=== PATIENT | male | born 1955 | race Caucasian/White ===

== ENCOUNTER 2021-03-16 05:57 | Day surgery (SDC) | payer MEDICARE ==
[2021-03-12 11:55] VITALS: BMI 38.5
[~2021-03-16 05:57] MED LIST: ACETAMINOPHEN TAB 500 MG TAB PO PRN; HEPARIN SODIUM,PORCINE/PF 5,000 UNIT/0.5 ML SYRINGE SQ PRN; LACTATED RINGERS 1,000 ML IV SCH; LIDOCAINE 1% (10MG/ML) FOR IV START INTRADERMA PRN
[2021-03-16 06:44] LABS: Glucose,Whole Blood 149 mg/dL (75-99)
[2021-03-16] MEDS ORDERED: HYDROmorphone 0.5 MG/0.5 ML SYRINGE IVP PRN (07:00)
[2021-03-16] MEDS ORDERED: ONDANSETRON 4 MG/2 ML VIAL IVP PRN (07:00)
[2021-03-16] MEDS ORDERED: MIDAZOLAM 2 MG/2 ML VIAL IV ONE (07:00)
[2021-03-16 07:19] VITALS: RESP 16
[2021-03-16] MEDS ORDERED: GLYCOPYRROLATE 0.2 MG/ML 2 ML VIAL ONE (07:53)
[2021-03-16] MEDS ORDERED: PHENYLEPHRINE-0.9% NACL SYG 1,000 MCG/10 ML SYRINGE ONE (07:53)
[2021-03-16] MEDS ORDERED: ePHEDrine 50 MG/ML 1 ML VIAL ONE (07:53)
[2021-03-16] MEDS ORDERED: NEOSTIGMINE 1 MG/ML 10 ML VIAL ONE (07:53)
[2021-03-16] MEDS ORDERED: PROPOFOL 10 MG/ML 20 ML VIAL IV ONE (07:53)
[2021-03-16] MEDS ORDERED: SUCCINYLCHOLINE CHLORIDE 100 MG/5 ML SYR IV ONE (07:53)
[2021-03-16] MEDS ORDERED: fentaNYL (PF) 50 MCG/ML 2 ML AMP ONE (07:53)
[2021-03-16] MEDS ORDERED: LIDOCAINE 1% INJ 10MG/ML (20 ML MDV) ONE (07:53)
[2021-03-16] MEDS ORDERED: KETAMINE 10 MG/ML 20 ML VIAL ONE (07:53)
[2021-03-16] MEDS ORDERED: ROPIVACAINE 5 MG/ML 30 ML VIAL ONE (07:53)
[2021-03-16] MEDS ORDERED: ROCURONIUM 10 MG/ML (5 ML VIAL) IV ONE (07:53)
[2021-03-16] MEDS ORDERED: MIDAZOLAM 2 MG/2 ML VIAL ONE (07:53)
[2021-03-16] MEDS ORDERED: BUPIVACAINE-EPI 0.5%-1:200,000 10 ML VIAL SQ ONE (08:27)
[2021-03-16] MEDS ORDERED: LACTATED RINGERS 1,000 ML IV ONE (08:45)
--- NOTE | 2021-03-16 09:15 | P.GSHP ---
History of Present Illness H&P Date: 03/16/21 Chief Complaint: Incarcerated umbilical hernia This is a 65-year-old male who presents today for laparoscopic robotic-assisted repair of incarcerated umbilical hernia. Patient has developed a tender mass is umbilicus. Past Medical History Past Medical History: Diabetes Mellitus, Hypertension Additional Past Medical History / Comment(s): Umbilical hernia History of Any Multi-Drug Resistant Organisms: None Reported Additional Past Surgical History / Comment(s): Facial fx surgery, hardware under Lt eye. Past Anesthesia/Blood Transfusion Reactions: No Reported Reaction Smoking Status: Former smoker - Past Family History Mother Additional Family Medical History / Comment(s): Pacemaker, heart problems Medications and Allergies Home Medications Medication Instructions Recorded Confirmed Type Ascorbic Acid [Vitamin C] 1,000 mg PO DAILY 03/12/21 03/12/21 History Cyanocobalamin (Vitamin B-12) 2,500 mcg PO DAILY 03/12/21 03/12/21 History [Vitamin B-12] Losartan Potassium [Cozaar] 100 mg PO DAILY 03/12/21 03/12/21 History Naproxen Sodium [Aleve] 220 - 440 mg PO BID PRN 03/12/21 03/12/21 History metFORMIN HCL [Glucophage] 1,000 mg PO HS 03/12/21 03/12/21 History metFORMIN HCL [Glucophage] 500 mg PO QAM 03/12/21 03/12/21 History Allergies Allergy/AdvReac Type Severity Reaction Status Date / Time No Known Allergies Allergy Verified 03/16/21 06:22 Surgical - Exam Vital Signs Temp Pulse Resp BP Pulse Ox 98.7 F 96 16 173/98 97 03/16/21 06:30 03/16/21 06:30 03/16/21 06:30 03/16/21 06:30 03/16/21 06:30 - General well developed, well nourished, no distress - Eyes PERRL - ENT normal pinna - Neck no masses - Respiratory normal expansion - Cardiovascular Rhythm: regular - Abdomen Abdomen: soft, non tender Hernia: umbilical (Incarcerated umbilical hernia 5 cm) Results - Labs Abnormal Lab Results - Last 24 Hours (Table) 03/16/21 Range/Units 06:38 POC Glucose (mg/dL) 149 H (75-99) mg/dL Assessment and Plan Assessment: Incarcerated umbilical hernia. We'll perform laparoscopic robotic system repair.
--- NOTE | 2021-03-16 09:17 | P.OP ---
Date of Procedure: 03/16/21 Preoperative Diagnosis: Incarcerated umbilical hernia Postoperative Diagnosis: Incarcerated umbilical hernia Procedure(s) Performed: Laparoscopic robotic-assisted repair of incarcerated umbilical hernia Partial omentectomy Transversus abdominis plane block Anesthesia: RASTA Surgeon: Cyrus Berry Estimated Blood Loss (ml): 5 Pathology: other (Omentum) Condition: stable Disposition: PACU Description of Procedure: The patient was placed on the operating table in the supine position. He received general anesthesia. His abdomen was prepped and draped usual fashion. Using a 5 mm optical trocar under direct visualization the peritoneal cavity was entered in the left upper quadrant. The abdomen was then insufflated. The laparoscope was placed back into the perineal cavity. Next a 8 mm robotic trocar was placed in the left lower quadrant and a 12 mm robotic trocar was placed in the left lateral position. The original 5 mm trocar was exchanged for a 8 mm robotic trocar. The patient's placed in the left side up position. And the patient was docked the robot. A transversus abdominis plane block was performed in 4 quadrants using 1% local Xylocaine. The umbilical hernia was visualized. Using hook cautery the peritoneum over the umbilical hernia was excised. The incarcerated omentum was dissected free and sent to pathology. The fascial opening was repaired using 0V LOC suture. Next a piece of 11 cm round ventral light ST mesh was placed into the. Cavity and secured with 2 OV lock suture. The patient was undocked the robot. The needles were retrieved. The fascia of the 12 mm trocar site was closed with 0 Ethibond suture. Skin was closed interrupted 3-0 Monocryl suture. Dermabond dressings was applied. Patient top procedure well and was sent to recovery room stable condition.
[2021-03-16 09:19] VITALS: TEMP 97.3
[2021-03-16 11:28] LABS: Glucose,Whole Blood 146 mg/dL (75-99)
[2021-03-16 11:57] VITALS: BP 129/79; PULSE 87
--- NOTE | 2021-03-19 13:22 | P.ANPRN ---
Procedure Note - Anesthesia - Nerve Block Performed Bilateral Rectus Abdominis Single Date of Procedure: 03/16/21 Procedure Start Time: 06:59 Procedure Stop Time: 07:05 Location of Patient: PreOp Indication: Acute Post-Operative Pain, Requested by Surgeon Sedation Type: Sedate with meaningful contact maintained Preparation: Sterile Prep Position: Supine Needle Types: Pajunk Needle Gauge: 21 Ultrasound used to visualize needle placement: Yes Ultrasound used to observe medication spread: Yes Blood Aspirated: No Pain Paresthesia on Injection Noted: No Resistance on Injection: Normal Image Stored and Saved: Yes Events: Uneventful and Well Tolerated (ropi .5% 20cc bilaterally)
== END 2021-03-16 12:14 | disposition home or self-care (01) ==
LOC: OR 05:57
PROVIDERS: ATTEND Surgery
DX: K42.9 Umbilical hernia without obstruction or gangrene (principal); Z87.891 Personal history of nicotine dependence
CPT/HCPCS: 49255; 49653; 64486; S2900; 64999; 88305

== ENCOUNTER → 2022-05-26 | Outpatient (CLI) | payer MEDICARE ==
--- NOTE | 2022-05-26 16:47 | MR ---
EXAMINATION TYPE: MR cervical spine wo con DATE OF EXAM: 05/26/2022 COMPARISON: None HISTORY: Neck pain, radiculopathy CONTRAST: Performed utilizing 0 mL intravenous Gadavist gadolinium contrast. TECHNIQUE: Multiplanar multiecho imaging on a 3.0 Cheryl magnet is performed through the cervical spin e. FINDINGS: The craniovertebral junction is normal. There is a cervical kyphosis centered at L4 grade C7-T1: No focal disc herniation or significant disc bulge is evident. No spinal canal stenosis or n eural foraminal stenosis is present. C6-7: Broad-based disc bulge is moderate anterior thecal sac compression. This comes in close approxi mation of the spinal cord. No AP spinal canal stenosis present. Moderate bilateral foraminal stenosis is present.. C5-6: Broad-based disc bulges moderate anterior thecal sac impression. This comes in close approximat ion of the spinal cord. No cord contact or cord flattening and 7. No AP spinal canal stenosis present . Moderate right and severe left foraminal stenosis present. C4-5: Broad-based disc bulge is present with moderate anterior thecal sac compression. This is cord c ontact and cord flattening. No AP spinal canal stenosis present. Severe left and moderate right arminda inal narrowing is present. C3-4: Large right paracentral disc herniation is present with moderate to severe thecal sac compressi on. Cord contact and cord deformity is present. AP spinal canal stenosis is not present. Mild left an d moderate to severe right foraminal stenosis is present.. C2-3: No focal disc herniation or significant disc bulge is evident. No spinal canal stenosis or anila ral foraminal stenosis is present. IMPRESSIONS: 1. Cervical kyphosis centered at C4. 2. Large right paracentral disc herniation C3-4 with moderate to severe thecal sac compression, cord contact with deformity without spinal canal stenosis. 2. Broad-based disc bulging present C4-5 with cord contact and cord flattening. 4. Broad-based disc bulging without cord contact or spinal canal stenosis. C5-6 C6-7
== END | disposition home or self-care (01) ==
LOC: RADMRIMAIN 06:30
PROVIDERS: ATTEND Family Medicine
DX: M50.11 Cervical disc disorder with radiculopathy, high cervical region (principal)
CPT/HCPCS: 72141

== ENCOUNTER → 2023-03-07 | Day surgery (SDC) | payer MEDICARE ==
[2023-03-06 12:00] VITALS: BMI 39.4
[~2023-03-07] MED LIST changes: -ACETAMINOPHEN TAB 500 MG TAB PO PRN; -HEPARIN SODIUM,PORCINE/PF 5,000 UNIT/0.5 ML SYRINGE SQ PRN; +LACTATED RINGERS 1,000 ML IV ONE; +PROPOFOL 10 MG/ML 20 ML VIAL IV ONE
[2023-03-07 08:11] LABS: Glucose,Whole Blood 139 mg/dL (70-110)
[2023-03-07 08:19] VITALS: TEMP 98
--- NOTE | 2023-03-07 09:12 | P.PCN ---
Date of Procedure: 03/07/23 Procedure(s) Performed: [id number] HISTORY: Patient is a 67-year-old pleasant white male scheduled for an elective colonoscopy as a part of evaluation of prior history of colon polyps. Her last colonoscopy was 3 years ago. PROCEDURE PERFORMED: Colonoscopy snare polypectomy. PREOPERATIVE DIAGNOSIS: History of colon polyps. IV sedation per Anesthesia. PROCEDURE: After informed consent was obtained, the patient, was brought into the endoscopy unit. IV sedation was administered by Anesthesia under continuous monitoring. Digital rectal examination was normal. Initially the Olympus CF-160 flexible video colonoscope was then inserted in the rectum, gradually advanced into the cecum without any difficulty. Careful examination was performed as the scope was gradually being withdrawn. Ileocecal valve and the appendiceal orifice were visualized and appeared normal. Prep was excellent. Mucosa of the cecum, ascending colon, transverse colon, appeared normal. In the descending colon there was a 6 cm sessile polyp that was moved by cold snare polypectomy. Scattered left sided diverticulosis seen. Rest of the descending colon, sigmoid colon, and rectum appeared normal. Retroflexion was performed in the rectum and no lesions were seen. The patient tolerated the procedure well. IMPRESSION: 6 mm descending colon polyp status post cold snare polypectomy Scattered sigmoid diverticulosis RECOMMENDATIONS: Findings of this examination were discussed with the patient LL as his family. He was advised to follow with the biopsy result. If the biopsy report adenoma he can have a repeat colonoscopy in 5 years..
[2023-03-07 09:20] LABS: Glucose,Whole Blood 134 mg/dL (70-110)
[2023-03-07 09:48] VITALS: BP 117/70; PULSE 91; RESP 18
== END ==
LOC: ORWHC2ENDO 07:30
PROVIDERS: ATTEND Internal Medicine Gastroenterology
DX: Z12.11 Encounter for screening for malignant neoplasm of colon (principal); D12.4 Benign neoplasm of descending colon; K57.30 Diverticulosis of large intestine without perforation or abscess without bleeding; Z86.010 Personal history of colon polyps; Z87.891 Personal history of nicotine dependence; Z79.899 Other long term (current) drug therapy
CPT/HCPCS: 88305; 45385; J2704

== ENCOUNTER → 2024-02-02 | Outpatient (CLI) | payer MEDICARE ==
--- NOTE | 2024-02-02 16:20 | CA ---
Transthoracic Echo Report Name: Vish Rice Age: 68 Gender: M : 1955 Exam Date: 02/02/2024 15:09 Exam Location: [facility] Ht (in): 68 Wt (lb): 272 Ordering Physician: Ernestina Dey DO Attending/Referring Phys: Magazine Repairer Umm Santos RDCS Procedure CPT: Indications: R06.02 SHORTNESS OF BREATH Cardiac Hx: Technical Quality: Technically difficult study Contrast 1: Definity Total Dose (mL): 2 Contrast 2: Total Dose (mL): MEASUREMENTS (Male / Female) Normal Values 2D ECHO LV Diastolic Diameter PLAX 4.9 cm 4.2 - 5.9 / 3.9 - 5.3 cm LV Systolic Diameter PLAX 3.9 cm IVS Diastolic Thickness 1.2 cm 0.6 - 1.0 / 0.6 - 0.9 cm LVPW Diastolic Thickness 1.2 cm 0.6 - 1.0 / 0.6 - 0.9 cm LV Relative Wall Thickness 0.5 RV Internal Dim ED PLAX 3.1 cm LVOT Diameter 1.6 cm LV Diastolic Volume MOD BP 143.8 cm??? 67 - 155 / 56 - 104 cm??? LV Systolic Volume MOD BP 94.9 cm??? 22 - 58 / 19 - 49 cm??? LV Ejection Fraction MOD BP 34.0 % >= 55 % LV Cardiac Index MOD BP 1747.8 cm???/min???m??? LV Diastolic Volume MOD 4C 154.8 cm??? LV Systolic Volume MOD 4C 98.2 cm??? LV Ejection Fraction MOD 4C 36.5 % LV Cardiac Index MOD 4C 2019.4 cm???/min???m??? LV Diastolic Length 4C 9.6 cm LV Systolic Length 4C 8.6 cm LV Diastolic Volume MOD 2C 127.8 cm??? LV Systolic Volume MOD 2C 85.8 cm??? LV Ejection Fraction MOD 2C 32.9 % LV Cardiac Index MOD 2C 1502.0 cm???/min???m??? LV Diastolic Length 2C 9.0 cm LV Systolic Length 2C 7.9 cm LA Volume 71.5 cm??? 18 - 58 / 22 - 52 cm??? LA Volume Index 28.7 cm???/m??? 16 - 28 cm???/m??? DOPPLER AV Peak Velocity 213.3 cm/s AV Peak Gradient 18.2 mmHg AV Mean Velocity 174.4 cm/s AV Mean Gradient 12.5 mmHg AV Velocity Time Integral 40.2 cm LVOT Peak Velocity 73.9 cm/s LVOT Peak Gradient 2.2 mmHg LVOT Velocity Time Integral 15.3 cm LVOT Stroke Volume 31.1 cm??? LVOT Stroke Volume Index 13.3 ml/m??? LVOT Cardiac Index 1109.6 cm???/min???m??? AV Area Cont Eq vti 0.8 cm??? AV Area Cont Eq pk 0.7 cm??? MV Peak Velocity 123.5 cm/s MV Peak Gradient 6.1 mmHg MV Mean Velocity 87.7 cm/s MV Mean Gradient 3.2 mmHg MV Velocity Time Integral 29.5 cm MV Area PHT 5.8 cm??? Mitral E Point Velocity 92.0 cm/s Mitral A Point Velocity 127.9 cm/s Mitral E to A Ratio 0.7 MV Deceleration Time 131.9 ms FINDINGS Left Ventricle Mildly increased septal wall thickness. S Moderately decreased left ventricular ejection fraction. Hypokinetic anterior wall.lateral wall. Left ventricular ejection fraction is estimated at 40-45 %. Grade 1 diastolic dysfunction. Right Ventricle Normal right ventricular size and function. Right Atrium Normal right atrial size. Left Atrium Moderately increased left atrial volume. Mildly increased left atrial area. Mitral Valve Structurally normal mitral valve. Mitral valve thickened. Mild mitral annular calcification. Mild mitral regurgitation. Aortic Valve Aortic valve not well visualized. No aortic regurgitation. Mild aortic stenosis with a peak gradient of 18 mmHg and a mean gradient of 12.5 mmHg. Tricuspid Valve Structurally normal tricuspid valve. Mild tricuspid regurgitation. Pulmonic Valve Structurally normal pulmonic valve. Pericardium Minimal pericardial effusion (normal variant). Aorta Normal size aortic root and proximal ascending aorta. CONCLUSIONS Moderate LV systolic dysfunction with an ejection fraction of 40-45% with anterolateral hypokinesis Mild aortic stenosis Mild mitral regurgitation Previewed by: Dr. Terrell Menchaca MD (Electronically Signed) Final Date: 02 February 2024 16:20
== END | disposition home or self-care (01) ==
LOC: RADECHMAIN 14:46
PROVIDERS: ATTEND Family Medicine
DX: I08.0 Rheumatic disorders of both mitral and aortic valves (principal); R06.02 Shortness of breath
CPT/HCPCS: C8929; Q9957; 93306

== ENCOUNTER → 2024-02-14 | Outpatient (CLI) | payer MEDICARE ==
[2024-02-14 20:10] LABS: HCT 45.7 % (39.6-50.0); HGB 15.4 g/dL (13.0-17.0); MCH 29.7 pg (27.0-32.0); MCHC 33.7 g/dL (32.0-37.0); MCV 88.2 FL (80.0-97.0); Mean Platelet Volume 9.9 FL (9.5-12.2); NRBC Per 100 WBC 0 X 10*3/uL (0.00-0.01); Platelet Count 195 X 10*3/uL (140-440); RBC 5.18 X 10*6/uL (4.40-5.60); WBC 12.25 X 10*3/uL (4.50-10.00)
[2024-02-14 20:21] LABS: Blood Urea Nitrogen 10.8 mg/dL (9.0-27.0); Calcium 9.4 mg/dL (8.7-10.3); Carbon Dioxide 27.4 mmol/L (21.6-31.8); Chloride 101 mmol/L (96-109); Glucose 90 mg/dL (70-110); Potassium 4.3 mmol/L (3.5-5.5); Sodium 141 mmol/L (135-145)
[2024-02-14 20:56] LABS: NT-Pro-B-Type Natriuretic Pept 182 pg/mL (0-125)
== END | disposition home or self-care (01) ==
LOC: LABWHC1 15:29
PROVIDERS: ATTEND Internal Medicine Cardiovascular Disease
DX: I50.21 Acute systolic (congestive) heart failure (principal)
CPT/HCPCS: 36415; 80048; 83880; 84443; 85027

== ENCOUNTER → 2024-03-06 | Day surgery (SDC) | payer MEDICARE ==
[~2024-03-06] MED LIST changes: +ALPRAZolam 0.25 MG TAB PO PRN; +ALPRAZolam 0.5 MG TAB PO PRN; +ASPIRIN 325 MG TAB PO SCH; +ASPIRIN 325 MG TAB PO STA; +ATORVASTATIN 20 MG TAB PO SCH; +ATORVASTATIN 80 MG TAB PO STA; +ATROPINE SULFATE 0.1 MG/ML 10ML SYRINGE IV PRN; +CLOPIDOGREL 75 MG TAB PO SCH; +FUROSEMIDE 40 MG TAB PO SCH; -LACTATED RINGERS 1,000 ML IV ONE; -LACTATED RINGERS 1,000 ML IV SCH; -LIDOCAINE 1% (10MG/ML) FOR IV START INTRADERMA PRN; +LOSARTAN 50 MG TAB PO SCH; +MAG HYDROX/AL HYDROX/SIMETH 30 ML CUP PO PRN; +NITROGLYCERIN SL TABS 0.4 MG TAB SUBLINGUAL PRN; +POTASSIUM CHLORIDE ER 20 MEQ TAB.ER PO SCH; -PROPOFOL 10 MG/ML 20 ML VIAL IV ONE; +RX INFO: IV CONTRAST WAS GIVEN 1 EACH MISC MISCELLANE PRN; +SODIUM CHLORIDE 0.9% 1,000 ML in EMPTY BAG 1 BAG IV ONE; +SODIUM CHLORIDE 0.9% 1,000 ML in EMPTY BAG 1 BAG IV SCH; +ZOLPIDEM 5 MG TAB PO PRN; +carvediloL 3.125 MG TAB PO SCH; +traMADol 50 MG TAB PO PRN
[2024-03-06 07:12] VITALS: RESP 16; TEMP 98
[2024-03-06] MEDS: IV FLUID CONTINUATION 1,000 ML IV ONE (07:15)
[2024-03-06] MEDS: HEPARIN SODIUM,PORCINE 10,000 UNIT in SODIUM CHLORIDE 0.9% 1,000 ML IRRIGATION PRN (07:26)
[2024-03-06] MEDS: HEPARIN SODIUM,PORCINE (1 ML) 2,500 UNIT in SODIUM CHLORIDE 0.9% 250 ML IRRIGATION PRN (07:27)
[2024-03-06] MEDS: MIDAZOLAM 2 MG/2 ML VIAL IVP ONE (07:31)
[2024-03-06] MEDS: fentaNYL (PF) 50 MCG/ML 2 ML AMP IVP ONE (07:31)
[2024-03-06] MEDS: LIDOCAINE 1% INJ 10MG/ML (20 ML MDV) SQ ONE (07:33)
[2024-03-06] MEDS: VERAPAMIL SYRINGE (5 MG/10 ML) INTRAARTER ONE (07:37)
[2024-03-06] MEDS: HEPARIN SODIUM 1,000 UN/ML (10ML VL) IVP ONE ×2 (07:39→08:22)
[2024-03-06] MEDS: CLOPIDOGREL 75 MG TAB PO ONE (08:15)
[2024-03-06] MEDS: NITROGLYCERIN 1000MCG/10ML SYRINGE INTRACORON ONE (08:33)
[2024-03-06] MEDS: IOPAMIDOL-370 100ML BTL INJ ONE ×2 (08:56→08:57)
--- NOTE | 2024-03-06 09:02 | P.PRCINT ---
Percutaneous Coronary Int. - Percutaneous Coronary Intervention Percutaneous Coronary Intervention: PROCEDURES PERFORMED: Bilateral coronary angiography, iFR (RFR) of RCA and circumflex, PCI circumflex with a 3.0 x 48mm Xience HOMERO, post dilated with a 3.5mm NC balloon, IVUS circumflex INDICATION: Ischemic cardiomyopathy, SCALES with NYHA class 3 symptoms CONSENT:I have discussed the risks, benefits and alternative therapies for the above-mentioned procedure and for both sedation/analgesia as well as necessary blood product administration, if indicated, as they pertain to this patient. The patient has indicated understanding and acceptance of the risks and procedures discussed. PROCEDURE: After the risks, benefits and alternatives of the above mentioned procedure explained in detail with the patient, informed consent was obtained. Patient was taken to the catheterization lab and prepped and draped in usual fashion. A 6-Kinyarwanda sheath had previously been placed in the right radial artery. The decision was made to perform functional assessment of the RCA and circumflex. Heparin was given. A 6 Kinyarwanda CLS 3.5 guide was used to engage the left main. A 0.014 pressure wire was advanced to the proximal left main and normalized. It was then advanced in the distal circumflex with iFR (RFR) being grossly abnormal at 0.79. Therefore decision made to perform PCI. Predilation was performed with a 2.5 x 12 mm balloon. Next predilation was performed with a 3.25 x 12 mm noncompliant balloon. Intravascular ultrasound showed reference vessel approximately 3.25 to 3.5 mm with diffuse disease throughout the entire proximal to mid circumflex. Therefore stented normal to normal. A 3.0 x 48 mm drug-eluting stent was placed from the proximal to distal circumflex. The proximal portion of the stent was postdilated with a 3.5 mm noncompliant balloon. Intravascular ultrasound showed well-expanded stent with no dissection. Final angiograms were performed. Preintervention there was 70% stenosis and BREANNA-3 flow and postintervention there was less than 10% stenosis and BREANNA-3 flow. Decision made to perform functional assessment of the RCA. Using the prior 3.5 catheter, there is 0.014 pressure wire was advanced in the proximal RCA and normalized. It was then advanced into the mid to distal RCA approximately 1 cm past the mid RCA lesion. iFR (RFR) was performed and was normal at 0.97. The right radial sheath was removed and a TR band was placed with hemostasis achieved. The patient tolerated the procedure well. Patient was transported back to the post catheterization holding area in stable condition. Conscious Sedation: Patient was monitored under the direct supervision of myself for conscious sedation using Versed and fentanyl for a total duration of 42 minutes HEMODYNAMICS: Ao: 127/71 SELECTIVE CORONARY ARTERIOGRAPHY: LEFT MAIN: The left main is a large caliber vessel which bifurcates into the LAD and circumflex. There is no significant stenosis. LEFT ANTERIOR DESCENDING CORONARY ARTERY: LAD is a large caliber vessel which comes short of the apex. There is diffuse 20-30% LAD stenosis. LEFT CIRCUMFLEX CORONARY ARTERY: Left circumflex is a moderate caliber vessel with a long area of diffuse disease with 50-60% stenosis and a more focal 70% mid circumflex stenosis. RIGHT CORONARY ARTERY: The right coronary artery is a large caliber vessel which gives off a PDA and PLV branch and is the dominant vessel. There are tandem 60- 70% and 60-70% proximal and mid RCA lesions. FINAL IMPRESSION: 1. CAD as described above including RCA 60-70% stenosis, circumflex 70% stenosis 2. iFR circumflex abnormal at 0.79, iFR RCA normal at 0.97 3. S/p PCI circumflex with a 3.0 x 48mm Xience HOMERO, post dilated with a 3.5mm NC balloon PLAN: 1. Aggressive risk factor modification per most recent ACC/AHA guidelines. 2. Continue dual antiplatelets with aspirin and Plavix for 6 months 3. Medical therapy of RCA given normal iFR
[2024-03-06 11:31] VITALS: PULSE 80
[2024-03-06 13:13] VITALS: BP 129/63
== END ==
LOC: CATHCVL 05:48
PROVIDERS: ATTEND Internal Medicine Cardiovascular Disease
DX: I25.5 Ischemic cardiomyopathy (principal); I50.21 Acute systolic (congestive) heart failure; I35.0 Nonrheumatic aortic (valve) stenosis; I25.10 Atherosclerotic heart disease of native coronary artery without angina pectoris; Z79.02 Long term (current) use of antithrombotics/antiplatelets; Z79.899 Other long term (current) drug therapy
CPT/HCPCS: 92978; 93458; 93799; 99152; 99153; C9600; C1769 ×2; C1894; C1887 ×2; C1725 ×3; C1753; C1874; J2250; J1644 ×3; J2003; J3010; Q9967; J2305